=== PATIENT | female | born 1965 | race African-American/Black ===

== ENCOUNTER → 2020-09-29 03:00 | Outpatient (CLI) | payer OTHER, SELFPAY ==
[2020-09-29 18:08] LABS: SARS-CoV-2 RNA PCR Negative
== END ==
PROVIDERS: Visit Provider Student in an Organized Health Care Education/Training Program
DX: Z01.812 Encounter for preprocedural laboratory examination (principal); Z20.822 Contact with and (suspected) exposure to COVID-19
CPT/HCPCS: C9803; U0003; U0005

== ENCOUNTER 2020-10-02 00:49 | Day surgery (SDC) | payer OTHER, SELFPAY ==
[2020-09-23 15:00] VITALS: BMI 38.8
--- NOTE | 2020-10-01 09:49 | WPDANESEPPF ---
Anes - Initial Pre Proc Eval Procedure: Operation Date: 10/02/20 08:30 Proposed Procedures p Hysteroscopy Dilation and Curettage With Possible Myosure - Itzel Glasgow MD Date/Time: 10/01/20 09:49 Surgeon: Itzel Glasgow MD Pre Op Diagnosis: Endometrial Thinckening, abnormal findings on dx i Patient Data Age: 55 Gender: F Height: 1.7 m Weight: 112.5 kg Allergies Allergy/AdvReac Type Severity Reaction Status Date / Time No Known Allergies Allergy Verified 10/02/20 07:22 Home Medications Medication Instructions Recorded Confirmed Type albuterol sulfate 1.25 mg/3 mL 1.25 mg INHALATION Q4-6H PRN 09/16/20 09/23/20 History solution for nebulization albuterol sulfate 90 mcg/actuation 1 puff INHALATION Q4H PRN 09/16/20 09/23/20 History aerosol inhaler fluticasone propionate 50 1 spray INTRANASAL DAILY 09/16/20 09/23/20 History mcg/actuation nasal spray,suspension xyncupavksfq-Dk-kvdn-minerals 1 tablet PO DAILY 09/16/20 09/23/20 History tramadol 50 mg tablet 50 mg PO Q6H PRN 09/16/20 09/23/20 History misoprostol 200 mcg tablet 200 mcg PO .COMPLEX #2 tablet 09/30/20 Rx Patient hx anesthesia problems: other (slow to wake up) Family hx anesthesia problems: none PMFSH Past Medical History Medical History Abnormal pelvic ultrasound Asthma Chronic bilateral low back pain Chronic pain of right knee Endometrial hyperplasia Enthesopathy of foot Epigastric pain Fatigue due to excessive exertion Gastrocnemius equinus of left lower extremity Gastrocnemius equinus of right lower extremity Headache, migraine Hyperglycemia Irritable bowel syndrome Left sided sciatica Palpitations Plantar fasciitis, bilateral PMR (polymyalgia rheumatica) Prediabetes Temporal arteritis Surgical History Surgical History H/O stapedectomy S/P rotator cuff repair Family History Family History Father Diabetes mellitus Mother Breast cancer Social History Social History Smoking status: Never smoker Alcohol intake: current Drinks per week: 3 Substance use: never Substance use type: does not use Living arrangements: with family Spiritual care concerns: No Anes - Eval Final PreProcedure Day of Procedure 10/01/20 09:49 Patient weight: obese Heart: regular rate and rhythm Lungs: clear to auscultation and normal air movement Airway: Mallampati scale class II Neurological: alert and oriented Last oral intake: >/= 8 hours ASA classification: III Emergent: no Anesthetic plan: proceed Anesthesia type and monitoring: general GIVS and standard monitoring Informed Consent: The patient's anesthetic plan and its attendant risks and benefits were discussed with the patient/family/POA. Questions were solicited and answers provided to the satisfaction of the patient/family/POA.
--- NOTE | 2020-10-01 15:32 | PM.IMHP ---
H&P: HPI History of Present Illness Date/Time: 10/01/20 15:32 Patient is a 55 year old nulligravid woman with a history of thickened endometrium and possible postmenopausal bleeding. She initially presented to the gynecology office earlier this month for evaluation of a thickened endometrium. Patient states that she entered the perimenopausal phase at approximately age 43-45. Last normal menstrual period was greater than 1 year ago. Patient reports intermittent light spotting since then and is uncertain of whether not she is completely menopausal. She also reports intermittent pelvic pain. A transvaginal ultrasound was performed by PCP and showed a normal-appearing uterus with a possibly thickened endometrial stripe measuring 1 cm. An endometrial biopsy was attempted twice in PCP's office, however, unsuccessful. Patient states procedure was terminated due to significant pain during the exam. She was offered another EMB trial under different conditions in urogynaecologist office, however, declined and would like to proceed with a hysteroscopy/D&C for further evaluation. She reports feeling well today without complaints. Chief Complaint: Thickened endometrium Review of Systems Review of Systems: All systems reviewed & are unremarkable except as noted in HPI and below Constitutional: Constitutional: Reports as per HPI, Reports no additional constitutional complaints, Denies chills, Denies fever(s), Denies headache(s) and Denies night sweats Eyes: Eyes: Reports as per HPI and Reports no additional eye complaints ENT: Reports system reviewed and no additional complaints, except as documented, Reports as per HPI, Reports Normal hearing present and Denies headache(s) Cardiovascular: Cardiovascular: Reports as per HPI, Reports no additional cardiovascular complaints, Denies chest pain and Denies dyspnea Respiratory: Respiratory: Reports as per HPI, Reports no additional respiratory complaints, Denies cough and Denies dyspnea Gastrointestinal: Gastrointestinal: Reports as per HPI, Reports no additional gastrointestinal complaints, Denies abdominal pain, Denies change in bowel habits, Denies change in stool character, Denies nausea and Denies vomiting Genitourinary: Genitourinary: Reports no additional female genitourinary complaints, Reports as per HPI, Denies abnormal vaginal bleeding, Denies genital lesions, Denies hot flashes, Denies dyspareunia, Denies pelvic pain, Denies sexual dysfunction, Denies urinary incontinence, Denies vaginal discharge, Denies vaginal dryness and Denies vaginal odor Musculoskeletal: Musculoskeletal: Reports no additional musculoskeletal complaints and Reports as per HPI Integumentary/Breasts: Skin/Breast: Reports system reviewed and no additional complaints, except as docu, Reports as per HPI, Denies breast pain and Denies nipple discharge Neurologic: Reports system reviewed and no additional complaints, except as documented, Reports as per HPI, Reports Normal hearing present and Denies headache(s) Psychiatric: Psychiatric: Reports no additional psychiatric complaints, Reports as per HPI, Denies anxiety and Denies depression Endocrine: Endocrine: Reports no additional endocrine complaints and Reports as per HPI Hematologic/Lymphatic: Hematologic/Lymphatic: Reports no additional hematologic/lymphatic complaints and Reports as per HPI Allergic/Immunologic: Allergic/Immunologic: Reports no additional allergic/immunologic complaints and Reports as per HPI PMF Past Medical History Medical History Abnormal pelvic ultrasound Asthma Chronic bilateral low back pain Chronic pain of right knee Endometrial hyperplasia Enthesopathy of foot Epigastric pain Fatigue due to excessive exertion Gastrocnemius equinus of left lower extremity Gastrocnemius equinus of right lower extremity Headache, migraine Hyperglycemia Irritable bowel syndrome Left sided sciatica Palpitations Plantar fasciitis, bila
--- NOTE | 2020-10-02 07:24 | WPDHPUPDATE1 ---
History and Physical Update Update Date/Time: 10/02/20 07:24 History and Physical has been reviewed, including an updated exam of the patient. There are NO changes in the patient's condition. Risks, benefits, and alternatives have been discussed and questions answered. Patient agrees to proceed with procedure. New results reviewed: patient's recent pap smear results from outside provider were received and showed ASC-H. This requires further evaluation with a colposcopy. Patient made aware of need for colposcopic evaluation and possible biopsies. Plan is to perform colposcopy at same time as hysteroscopy and D&C. Risks of procedure discussed with patient. All questions and concerns addressed. Patient implied an understanding and agrees with plan.
[2020-10-02] MEDS: ACETAMINOPHEN 500 MG TABLET 1000 MG PO (07:40)
[2020-10-02] MEDS: LACTATED RINGERS 1,000 ML 30 ML IV CONT (07:40)
[2020-10-02 07:41] VITALS: BMI 38.3
[2020-10-02 07:42] VITALS: BP 157/88; PULSE 96; RESP 18; TEMP 36; O2SAT 100
--- NOTE | 2020-10-02 09:05 | SUR.OPER ---
dr. roland is going to take colposcopy specimens back to office with her after procedure.
--- NOTE | 2020-10-02 09:29 | SUR.OPER ---
300ml ns in 220ml ns out. aware
[2020-10-02 09:39] VITALS: BP 150/89; PULSE 85; RESP 14; O2SAT 99
[2020-10-02 10:09] VITALS: BP 164/84; PULSE 65; RESP 18; O2SAT 99
--- NOTE | 2020-10-02 10:12 | PM.PROC ---
Procedure Note - Detailed Date of procedure: 10/02/20 Pre-op diagnosis: Endometrial Thinckening, abnormal findings on dx i ASC-H on pap smear Post-op diagnosis: same Procedure performed: Colposcopy with biopsies Hysteroscopy Dilation and curettage Description of procedure: The patient was taken to operating room where she self transferred to the operating room table. The patient was placed in a dorsal supine position. Anesthesia was administered and found to be adequate. The patient was repositioned in dorsal lithotomy position with the use of Elxx stirrups. A bivalve speculum was inserted into the vagina. The cervix was well visualized. The cervix appeared small and nulliparous. A high-powered microscope was used to perform a colposcopy. A generous amount of acetic acid was applied to the cervix. On inspection, an area of mild aceto-white changes were noted in between 7:00 and 10:00. Another area of faint aceto-white change was noted around 4:00. The entire SCJ was not well visualized. A tenaculum was applied to the superior portion of the cervix for stabilization. Three cervical biopsies were taken, 4:00, 7:00, and 10:00. A Rynan endocervical curette as well as a Cytobrush were used to perform an endocervical curettage. All specimen were prepared to be taken back to office to be sent to pathology for analysis. The tenaculum and speculum were removed. The patient was then prepped and draped in the usual sterile fashion. A 2nd sterile bivalve speculum was inserted into the vagina. The cervix was regrasped with a tenaculum. A paracervical block was performed with 1% plain lidocaine. 5 cc of lidocaine was administered on either side a total of 10 cc. The cervix was serially dilated to accommodate a hysteroscope. Hysteroscope was advanced into the endometrial cavity. On inspection, the endometrial cavity appeared grossly normal. It was, however, mildly hyperemic. This was likely due to manipulation of the dilators as cervical os was quite narrow. Bilateral tubal ostia were visualized. Virtually no tissue was seen. A few photographs were taken and the hysteroscope was removed. A small rigid curette was then introduced into the endometrial cavity. All quadrants were explored and a scant amount of tissue was obtained. This tissue was prepared to be sent to pathology for analysis. The procedure was deemed complete. The tenaculum was removed from the anterior lip of the cervix. A minimal amount of oozing was noted from the tenaculum puncture sites as well as the cervix where biopsies were taken. Monsel's solution was applied. Excellent hemostasis was noted. The rest of the vagina was cleansed and dried and the speculum was removed. The rest of the patient was also cleansed and dried. She was taken out of the dorsal lithotomy position and awakened from anesthesia without difficulty. She was transferred to the recovery room in stable condition. All sponge and instrument counts were correct at the end of the procedure. Anesthesia: MAC Surgeon: Itzel Glasgow MD Estimated blood loss (mL): 10 IV fluids (mL): 900 Urine output (mL): 80 Drains: No Packing: No Pathology: yes (endometrial curettings sent from OR, colposcopic biopsies returned to office to be sent to pathology) Complications: No immediate complications Condition: stable Disposition: same day Findings: Hysteroscopic fluid: 300cc in/220cc out Intraoperative findings: small, nulliparous cervix, mild acetowhite changes noted mostly between 7:00 and 10:00 with a separate area around 4:00, unable to visualize entire SCJ, normal appearing endometrial cavity, somewhat hyperemic, likely due to manipulation of dilators, bilateral tubal ostia visualized, scant tissue obtained
[2020-10-02] MEDS: fentaNYL CITRATE INJ (*CRX) 100 MCG/2 ML VIAL 25 MCG IV PUSH ×4 (10:17→10:45)
[2020-10-02 10:39] VITALS: BP 149/77; PULSE 74; RESP 18; O2SAT 98
[2020-10-02] MEDS: oxyCODONE HCL (*CRX) 5 MG TAB IR PO (10:58)
[2020-10-02 11:09] VITALS: BP 149/71; PULSE 70; RESP 18
[2020-10-02 11:39] VITALS: BP 150/76; PULSE 78; RESP 18
== END 2020-10-02 11:42 | disposition home or self-care (01) ==
PROVIDERS: PCP Internal Medicine; Visit Provider Student in an Organized Health Care Education/Training Program
PROC: 0U5B8ZZ Destruction of Endometrium, Via Natural or Artificial Opening Endoscopic (ICD-10-PCS; CPT 58563; principal; 2020-10-02 08:30)
DX: R87.611 Atypical squamous cells cannot exclude high grade squamous intraepithelial lesion on cytologic smear of cervix (ASC-H) (principal); N85.8 Other specified noninflammatory disorders of uterus; J45.909 Unspecified asthma, uncomplicated; K58.9 Irritable bowel syndrome, unspecified; M35.3 Polymyalgia rheumatica; R73.03 Prediabetes; Z79.51 Long term (current) use of inhaled steroids; E66.9 Obesity, unspecified; Z68.38 Body mass index [BMI] 38.0-38.9, adult
CPT/HCPCS: 58558; 57454; 88305; A9270; J1100; J2250; J2405; J2704; J3010; J7030; J7120

== ENCOUNTER 2021-05-07 13:28 | Outpatient (CLI) | payer OTHER, SELFPAY ==
--- NOTE | ~2021-05-07 | MMUS_ITS ---
EXAMINATION: MM diagnostic esther LT w gerard, US breast LT complete HISTORY: Left breast pain TECHNIQUE: ML, MLO and craniocaudal full field and spot 3-D tomosynthesis images of the left breast w ere performed and synthetic 2-D images were generated. CAD analysis was submitted and interpreted. Hi gh resolution complete left breast ultrasound including all 4 quadrants and subareolar area was perfo rmed. COMPARISON: None BREAST PARENCHYMAL COMPOSITION: There are scattered areas of fibroglandular density. FINDINGS: MAMMOGRAPHIC FINDINGS: No suspicious mass or architectural distortion, malignant calcification, skin thickening or retractio n is detected. ULTRASOUND: No suspicious mass or shadowing is detected. IMPRESSION: 1. No mammographic evidence of malignancy 2. Routine mammographic screening is recommended BI-RADS Category 1: Negative Reviewed, dictated and finalized at location A. IMPRESSION: 1. No mammographic evidence of malignancy 2. Routine mammographic screening is recommended BI-RADS Category 1: Negative
== END 2021-05-07 13:29 | disposition home or self-care (01) ==
PROVIDERS: PCP Internal Medicine; Visit Provider Student in an Organized Health Care Education/Training Program
DX: N64.4 Mastodynia (principal)
CPT/HCPCS: 76641; 77061; 77065; G0279

== ENCOUNTER 2022-01-17 06:41 | Outpatient (CLI) | payer OTHER, SELFPAY ==
--- NOTE | ~2022-01-17 | XR_ITS ---
XR foot LT standing 2V DATE: 01/17/2022 08:04 INDICATION: Pain TECHNIQUE: Standing AP and lateral views COMPARISON: None FINDINGS: There is diminished calcaneal pitch of 6 degrees consistent with pes planus. Mild to moderate plantar calcaneal enthesopathy. Mild posterior calcaneal enthesopathy. Mild periarticular spurring at the first metatarsophalangeal joint consistent with mild osteoarthriti s. No fracture, dislocation, periosteal reaction or bone destruction. IMPRESSION: Pes planus Plantar posterior calcaneal enthesopathy Mild first metatarsophalangeal osteoarthritis Reviewed, dictated and finalized at location A.
--- NOTE | ~2022-01-17 | XR_ITS ---
XR foot RT standing 2V DATE: 01/17/2022 08:04 INDICATION: Right foot pain TECHNIQUE: Standing AP and lateral views COMPARISON: None FINDINGS: Calcaneal pitch is 7 degrees, which is below 19 degrees, abnormal. There is plantar and posterior calcaneal enthesopathy, without evidence of erosive change or periosti tis. Mild hallux valgus. No fracture, dislocation, periosteal reaction or bone destruction. IMPRESSION: Plantar and posterior calcaneal enthesopathy Diminished calcaneal pitch consistent with pes planus Reviewed, dictated and finalized at location A.
--- NOTE | ~2022-01-17 | XR_ITS ---
XR sacroiliac joints min 3V DATE: 01/17/2022 08:03 INDICATION: Back pain. Abnormal immunological findings TECHNIQUE: AP and bilateral oblique views COMPARISON: None FINDINGS: Normal alignment at the sacroiliac joints. No fracture or dislocation. No erosive change or ankylosis or any significant degenerative changes noted. IMPRESSION: No significant abnormality Reviewed, dictated and finalized at Location A. Reviewed, dictated and finalized at location A. IMPRESSION: No significant abnormality
--- NOTE | ~2022-01-17 | XR_ITS ---
EXAMINATION: HAND-LUIS ARTHRITIS 3+VIEWS DATE: 01/17/2022 08:04 INDICATION: Unspecified osteoarthritis TECHNIQUE: Posteroanterior, lateral, and oblique views of the left and of the right hands as well as a ballcatchers view of both hands were obtained. COMPARISON: None. FINDINGS: Suggestion of mild bilateral ulnar positive variance with cystic change at the ulnar side of the left lunate and subtle sclerosis at the ulnar side of the right lunate suspicious for ulnocarpal impactio n. Bone alignment is otherwise normal. No fracture. Bone island at the distal left radius . Joint spa janett appear relatively preserved. No erosions to suggest an inflammatory arthritis. IMPRESSION: 1. Mild bilateral ulnar positive variance with subarticular cystic change at the left lunate and suba rticular sclerosis at the right lunate suggesting ulnocarpal impaction. 2. No erosions to suggest an inflammatory arthritis. Reviewed, dictated and finalized at location B. IMPRESSION: 1. Mild bilateral ulnar positive variance with subarticular cystic change at th e left lunate and subarticular sclerosis at the right lunate suggesting ulnocar pal impaction. 2. No erosions to suggest an inflammatory arthritis.
--- NOTE | ~2022-01-17 | XR_ITS ---
XR lumbar spine min 4V DATE: 01/17/2022 08:03 INDICATION: Back pain TECHNIQUE: AP and lateral views and coned lateral lumbosacral views bilateral oblique views. COMPARISON: None FINDINGS: Normal alignment of the lumbar spine. No fracture or bone destruction, spondylolysis or spo ndylolisthesis. Lumbosacral interspaces are relatively preserved, mild degenerative spurring noted at L2-3 and L3-4. The sacroiliac joints are normal. Joint spaces appear well preserved bilaterally. IMPRESSION: Mild degenerative change Reviewed, dictated and finalized at location A. IMPRESSION: Mild degenerative change
--- NOTE | ~2022-01-17 | XR_ITS ---
XR knee LT min 4V DATE: 01/17/2022 08:04 INDICATION: Knee pain. Other abnormal immunological finding TECHNIQUE: Weightbearing AP, PA and lateral views. [place] view. COMPARISON: None FINDINGS: There is mild periarticular spurring of the patella. There is slight periarticular spurring of the medial tibial plateau. Joint spaces appear well preserved. No fracture or dislocation or joint effusion. No radiopaque intra-articular loose body or chondrocalc inosis. No joint effusion. IMPRESSION: Mild osteoarthritis Reviewed, dictated and finalized at location A. IMPRESSION: Mild osteoarthritis
[2022-01-17 08:16] LABS: Alanine Aminotransferase 31 U/L (6-35); Albumin Level 4.7 g/dL (3.5-5.1); Alkaline Phosphatase 87 U/L (38-126); Anion Gap 3 mmol/L (8-16); Aspartate Amino Transferase 26 U/L (14-36); Bilirubin,Total 0.2 mg/dL (0.2-1.3); Blood Urea Nitrogen 17 mg/dL (7-17); CRP 0.7 mg/dL (<1.0); Calcium 9.3 mg/dL (8.4-10.2); Carbon Dioxide 32 mmol/L (22-30); Chloride 107 mmol/L (98-107); Estimated Glomerular Filt Rate > 60; Glucose 117 mg/dL (65-110); Potassium 3.9 mmol/L (3.4-5.0); Sodium 142 mmol/L (137-145); Uric Acid 6.5 mg/dL (2.5-7.5)
[2022-01-17 08:19] LABS: Basophils Percent Auto 0.7 % (0.2-1.2); Eosinophils Absolute Auto 0.1 K/mm3 (0-0.3); Hematocrit 38.2 % (37.0-47.0); Hemoglobin 11.8 g/dL (12.0-15.0); Immature Granulocyte Absolute 0.01 K/mm3 (0.00-0.031); Immature Granulocyte Percent A 0.2 % (0-0.5); Lymphocytes Absolute Auto 1.61 K/mm3 (0.9-3.2); Lymphocytes Percent Auto 39.9 % (18.3-44.2); Mean Corpuscular HGB Conc 30.9 g/dl (32-36); Mean Corpuscular Hemoglobin 26.1 pg (26-34); Mean Corpuscular Volume 84.5 fl (80-100); Mean Platelet Volume 12.7 fl (7.4-10.4); Monocytes Absolute Auto 0.2 K/mm3 (0.1-0.6); Monocytes Percent Auto 5.2 % (2.6-8.5); Neutrophils Absolute Auto 2.1 K/mm3 (1.3-6.7); Platelet Count Result 184 k/mm3 (150-375); Red Blood Count 4.52 M/mm3 (4.2-5.4); Red Cell Distribution Width 14.6 % (11.5-14.5)
[2022-01-17 09:11] LABS: Rheumatoid Factor < 8.6 IU/ML (<12)
[2022-01-17 10:36] LABS: Erythrocyte Sedimentation Rate 26 mm/hr (0-20)
[2022-01-19 14:21] LABS: Angiotensin Converting Enzyme 25.2 U/L (9-67)
[2022-01-20 04:08] LABS: Thyroid Peroxidase Antibodies 1 IU/mL (<9)
[2022-01-20 21:57] LABS: Anti Cyclic Citrullinated Pept 22 Units (<20)
[2022-01-22 11:56] LABS: SM Antibody <1.0; SM/RNP Antibody <1.0; SS-A <1.0; SS-B <1.0
== END 2022-01-17 06:42 | disposition home or self-care (01) ==
PROVIDERS: PCP Internal Medicine; Visit Provider Internal Medicine
DX: R76.8 Other specified abnormal immunological findings in serum (principal); M77.32 Calcaneal spur, left foot; M19.072 Primary osteoarthritis, left ankle and foot; M17.12 Unilateral primary osteoarthritis, left knee; M77.31 Calcaneal spur, right foot; M51.36 Other intervertebral disc degeneration, lumbar region
CPT/HCPCS: 36415; 72110; 72202; 73130; 73564; 73620; 80053; 82164; 82306; 84550; 85025; 85652; 86140; 86200; 86225; 86235; 86376; 86430